=== PATIENT | female | born 1980 | race Caucasian/White ===

== ENCOUNTER → 2023-05-27 | Day surgery (SDC) | payer BC | LOC: JD.MRI 06:37 → EDSTATUS 07:00 → JD.SDS 08:46 | PROVIDERS: ATTEND Nurse Practitioner Family | DX: S82.832A Other fracture of upper and lower end of left fibula, initial encounter for closed fracture (principal); S83.512A Sprain of anterior cruciate ligament of left knee, initial encounter; S83.422A Sprain of lateral collateral ligament of left knee, initial encounter; S83.412A Sprain of medial collateral ligament of left knee, initial encounter; M71.22 Synovial cyst of popliteal space [Baker], left knee; M25.462 Effusion, left knee | CPT/HCPCS: 73721-26-LT; 73721-LT ==

== ENCOUNTER 2023-09-05 08:25 | Day surgery (SDC) | payer BC ==
[~2023-09-05 08:25] MED LIST: Dexamethasone 4 MG/ML 5 ML MDV ONE; Ketorolac 30 MG/ML SDV ONE; Lactated Ringers 1,000 ML IV SCH; Lidocaine 1% 5 ML VIAL ONE; Midazolam 1 MG/ML 2 ML SDV ONE; Ondansetron 4 MG/2 ML SDV ONE; Propofol 200 MG/20 ML SDV ONE; Ropivacaine 0.5% 5 MG/ML 30 ML SDV ONE; Sodium Chloride 0.9% 10 ML Syringe FLUSH PRN; Sodium Chloride 0.9% 10 ML Syringe FLUSH SCH; ceFAZolin 2 GM Vial ONE; fentaNYL 100 MCG/2 ML SDV ONE
[2023-09-05] MEDS ORDERED: EPINEPHrine 1 MG/ML SDV ONE (09:04)
[2023-09-05] MEDS ORDERED: Bupivacaine 0.25% 10 ML SDV ONE (09:18)
[2023-09-05] MEDS ORDERED: HYDROmorphone 0.5 MG/0.5 ML Syringe ONE (10:12)
[2023-09-05] MEDS ORDERED: fentaNYL 100 MCG/2 ML SDV ONE (10:56)
[2023-09-05] MEDS ORDERED: Acetaminophen/HYDROcodone 325-5 MG Tab PO PRN (11:30)
== END 2023-09-05 13:30 | disposition home or self-care (01) ==
LOC: JD.SDS 08:25
PROVIDERS: ATTEND Orthopaedic Surgery
DX: S83.512A Sprain of anterior cruciate ligament of left knee, initial encounter (principal); S83.282A Other tear of lateral meniscus, current injury, left knee, initial encounter; I10 Essential (primary) hypertension; F41.8 Other specified anxiety disorders; E78.00 Pure hypercholesterolemia, unspecified; K21.9 Gastro-esophageal reflux disease without esophagitis; F17.210 Nicotine dependence, cigarettes, uncomplicated; Z79.899 Other long term (current) drug therapy; Z88.8 Allergy status to other drugs, medicaments and biological substances; Z79.82 Long term (current) use of aspirin
CPT/HCPCS: 29881; 29888; 76000; 81025; A9270; C1713; C1762; J0171; J0690; J1100; J1170; J1885; J2250; J2405; J2704; J2795; J3010; J7120; 01400; J3490